=== PATIENT | female | born 1980 | race Caucasian/White ===

== ENCOUNTER 2018-05-18 08:09 | Outpatient (CLI) | payer BC ==
[2018-05-18 08:53] VITALS: BP 125/83; PULSE 83; RESP 20; TEMP 98.3
[2018-05-18] MEDS ORDERED: SODIUM CHLORIDE 0.9% 1,000 ML IV ONE (09:10)
[2018-05-18] MEDS ORDERED: METOCLOPRAMIDE 5 MG/ML 2 ML VIAL IVP STA (09:11)
--- NOTE | 2018-05-19 11:34 | P.MSEPDOC ---
Presenting Problems - Arrival Data Date of Arrival on Unit: 05/18/18 Time of Arrival on Unit: 08:25 Mode of Transport: Ambulatory - Complaint OB-Reason for Admission/Chief Complaint: Acute Nausea/Vomiting, Pain, Diabetes Comment: pt arrived c/o upper abd discomfort since saturday and c/o throwing up since 3 am bile fluid. pt has a history of gestational diabetic Medical History - Information : 7 Para: 2 Term: 1 : 1 Abortions: Spontaneous or Elective: 4 Number of Living Children: 2 - Gestational Age Gestational Age by TRACIE (wks/days): 36 Weeks and 6 Days - History Complications: GDM, Prior Review of Systems - Review of Systems Constitutional: No problems Breast: No problems ENT: No problems Cardiovascular: No problems Respiratory: No problems Gastrointestinal: Pain Genitourinary: No problems Musculoskeletal: No problems Neurological: No problems Skin: No problems Vital Signs - Temperature Temperature: 98.3 F Temperature Source: Oral - Pulse Right Brachial Pulse Rate: 83 Pulse Assessment Method: Automatic Cuff - Respirations Respiratory Rate: 20 Oxygen Delivery Method: Room Air O2 Sat by Pulse Oximetry: 97 - Blood Pressure Right Arm Blood Pressure: 125/83 Blood Pressure Mean: 97 Blood Pressure Source: Automatic Cuff Medical Screen Scoring (Pre) - Cervical Exam Dilation: 0 cm = 0 Membranes: Intact - Uterine Contractions Frequency: > 5 minutes apart = 1 Duration: N/A Intensity: N/A - Maternal Vital Signs Maternal Temperature: N/A Maternal Blood Pressure: N/A Signs of Preeclampsia: Nausea/Vomiting = 1 Maternal Respirations: N/A - Pain Assessment Pain Location and Character: Upper, Abdomen Pain Scale Used: Numeric (1 - 10) Pain Intensity: 8 Pain Management Goal: 2 Pain Description: Sharp Pain Radiation Location: n/a Pain Frequency: Occasional Pain Duration: 45 Pain Duration Units: Minutes Pain Behavior: Anxious, Vocalization Pain Aggravating Factors: Position, Sitting Non-Pharmacological Interventions: Darkened Room, Relaxation Technique - Maternal Trauma Maternal Trauma: N/A - Assessment Baseline FHR: 135 Heart Rate - NICHD Category: Category I (Normal) = 0 NST: Reactive Position: N/A - Total Score Total Score (Pre): 2 - Level of Risk Level of Risk: Low (0-5) Physician Notification (Post) - Physician Notified New Order Received: Yes - Notification Comment Comment: may discharge to home Disposition - Disposition OB Disposition: Discharge to home Discharge Date: 05/18/18 Discharge Time: 10:35 I agree with the RN Medical Screening Exam: Yes Risk & Benefit of care provided described in d/c instruction: No Diagnosis: NAUSEA WITH VOMITING, UNSPECIFIED
== END 2018-05-18 10:35 | disposition home or self-care (01) ==
LOC: FBPOP 08:09
PROVIDERS: ATTEND Obstetrics & Gynecology
DX: O21.2 Late vomiting of pregnancy (principal); Z3A.36 36 weeks gestation of pregnancy
CPT/HCPCS: 59025; 99214; 96360; 96375; J2765

== ENCOUNTER 2018-05-27 09:35 | Inpatient (IN) | payer BC ==
[2018-05-23 09:08] VITALS: BMI 41.3
[2018-05-27] MEDS ORDERED: LACTATED RINGERS 1,000 ML IV ONE (10:00)
[2018-05-27] MEDS ORDERED: CITRIC ACID-SODIUM CITRATE 15 ML CUP PO ONE (10:00)
[2018-05-27] MEDS ORDERED: ceFAZolin IN SWFI 2 GM/20 ML SYRINGE IVP ONE (10:00)
[2018-05-27 11:14] LABS: Glucose,Whole Blood 85 mg/dL (75-99)
[2018-05-27 11:25] LABS: Basophils % (A) 0 %; Eosinophils # (A) 0.1 k/uL (0-0.7); Eosinophils % (A) 1 %; HCT 39.2 % (34.0-46.0); Lymphocytes # (A) 2.1 k/uL (1.0-4.8); Lymphocytes % (A) 15 %; MCH 28.5 pg (25.0-35.0); MCHC 33.1 g/dL (31.0-37.0); MCV 86.2 fL (80.0-100.0); Mean Platelet Volume 8.5; Monocytes # (A) 0.4 k/uL (0-1.0); Monocytes % (A) 3 %; Neutrophils # (A) 10.7 k/uL (1.3-7.7); Neutrophils % (A) 79 %; Platelet Count 243 k/uL (150-450); RBC 4.55 m/uL (3.80-5.40); RDW 14.5 % (11.5-15.5); WBC 13.5 k/uL (3.8-10.6)
[2018-05-27] MEDS ORDERED: ePHEDrine SULFATE/0.9% NACL/PF 50 MG/5 ML SYRINGE IV ONE (12:21)
[2018-05-27] MEDS ORDERED: ONDANSETRON 4 MG/2 ML VIAL ONE (12:21)
[2018-05-27] MEDS ORDERED: NALBUPHINE 10 MG/ML VIAL (10ML MDV) ONE (12:21)
[2018-05-27] MEDS ORDERED: OXYTOCIN 10 UNIT/ML 1 ML VIAL ONE (12:21)
[2018-05-27] MEDS ORDERED: MORPHINE SULFATE (PF) 0.3 MG/0.3 ML SYR ONE (12:21)
[2018-05-27] MEDS ORDERED: KETOROLAC 30 MG/ML 1 ML VIAL ONE (12:21)
[2018-05-27] MEDS ORDERED: METOCLOPRAMIDE 5 MG/ML 2 ML VIAL IVP PRN (13:14)
[2018-05-27] MEDS ORDERED: diphenhydrAMINE 50 MG/ML 1 ML VIAL IVP PRN ×2 (13:14)
[2018-05-27] MEDS ORDERED: diphenhydrAMINE 50 MG CAP PO PRN (13:14)
[2018-05-27] MEDS ORDERED: ZOLPIDEM 5 MG TAB PO PRN (13:14)
[2018-05-27] MEDS ORDERED: ONDANSETRON 4 MG/2 ML VIAL IVP PRN (13:14)
[2018-05-27] MEDS ORDERED: diphenhydrAMINE 25 MG CAP PO PRN (13:14)
[2018-05-27] MEDS ORDERED: NALOXONE 0.4 MG/ML 1 ML VIAL IV PRN (13:14)
[2018-05-27] MEDS ORDERED: SIMETHICONE 80 MG CHEWABLE PO PRN (13:14)
[2018-05-27] MEDS ORDERED: HYDROcodone/APAP 7.5-325MG 1 EACH TAB PO PRN (13:14)
[2018-05-27] MEDS ORDERED: ACETAMINOPHEN TAB 325 MG TAB PO PRN (13:14)
[2018-05-27] MEDS ORDERED: OXYTOCIN 20 UNITS/1000 ML NS 1,000 ML IV SCH (13:15)
--- NOTE | 2018-05-27 13:22 | P.HPOB ---
History of Present Illness H&P Date: 05/27/18 Chief Complaint: 38 weeks, IUGR, gestational diabetes, previous section The patient is a 37-year-old 7 para 1142 admitted at 38-0/7 weeks as established by last menstrual period and confirmed by early ultrasound. She is admitted for repeat low transverse section having undergone 2 previous sections. She carries a history of severe preeclampsia in the past which has not the been noted during this at all. She also was found to be gestational diabetes and has been co-managed for both her diabetes and the diagnosis of intrauterine growth restriction with [facility] in [place]. All testing has been reassuring though most recent ultrasound demonstrated growth at 2nd percentile. Group B strep status is negative. She also fell into the category of advanced maternal age and declined testing. Obstetrical history: 7 para 1142 with 2 previous sections one of which was at approximately 34 weeks for severe preeclampsia. She had 4 other previous losses, some of which in the midtrimester. Current statistics are listed in history of present illness. EDC of 06/09/2018 was established by last menstrual period and confirmed by early ultrasound. Laboratory workup demonstrates a blood type of A+ with a negative antibody screen. Rubella status is immune. Remainder of her laboratory workup was within normal limits. Early Glucola with significantly elevated was followed by an abnormal glucose tolerance test making the diagnosis of diabetes. Group B strep status is negative. Gynecologic history: Unremarkable with no history of any infections to include STDs. Review of Systems Review of systems is confined to history of present illness. Past Medical History Past Medical History: No Reported History Additional Past Medical History / Comment(s): GESTATIONAL DIABETES ON INSULIN AT THIS TIME History of Any Multi-Drug Resistant Organisms: None Reported Past Surgical History: Section Additional Past Surgical History / Comment(s): C-SEC X 2. pt has had one d and c after spontaneous Past Anesthesia/Blood Transfusion Reactions: No Reported Reaction Past Psychological History: No Psychological Hx Reported Smoking Status: Former smoker Past Alcohol Use History: None Reported Additional Past Alcohol Use History / Comment(s): QUIT SMOKING 2016 Past Drug Use History: None Reported - Past Family History Mother Family Medical History: Coronary Artery Disease (CAD), Hypertension Medications and Allergies Home Medications Medication Instructions Recorded Confirmed Type Szv-Dolx-Vyzwp Acid 1 tab PO DAILY 11/10/14 05/27/18 History [-U Capsule (formulary)] Insulin NPH Human Isophane 16 unit SQ HS 05/18/18 05/27/18 History [NovoLIN N] Allergies Allergy/AdvReac Type Severity Reaction Status Date / Time No Known Allergies Allergy Verified 05/27/18 09:59 Exam Vital Signs Temp Pulse Resp BP Pulse Ox 05/27/18 09:59 97.2 F L 90 16 138/82 97 Intake and Output 05/26/18 05/27/18 05/27/18 22:59 06:59 14:59 Output Total 400 Balance -400 Output: Estimated Blood Loss 400 Other: Weight 96.162 kg In general, this is a well-developed, mild to moderately obese white female in no acute distress. Her heart has a regular rhythm and rate without murmur. Her lungs are clear to auscultation bilaterally in all shahid. Her abdomen is gravid, nondistended, has normal active bowel sounds, soft, nontender, and without any palpable masses aside from uterine fundus. Her extremities are without any cyanosis, clubbing, or significant edema and are nontender to palpation bilaterally. Digital cervical examination is deferred. Results Result Diagrams: 05/27/18 11:00 Abnormal Lab Results - Last 24 Hours (Table) 05/27/18 Range/Units 11:00 WBC 13.5 H (3.8-10.6) k/uL Neutrophils # 10.7 H (1.3-7.7) k/uL Assessment and Plan (1) S/P section Current Visit: Yes Status: Acute Code(s): Z98.891 - HISTORY OF UTERINE SCAR FROM PREVIOUS SURGERY SNOMED Code(s): 192597954 (2) Gestational diabetes Current Visit: Yes Status: Acute Code(s): O24.419 - GESTATIONAL DIABETES MELLITUS IN , UNSP CONTROL SNOMED Code(s): 64687642 (3) Intrauterine growth retardation in Current Visit: Yes Status: Acute Code(s): O36.5990 - MATERN CARE FOR OTH OR SUSP POOR FETL GRTH, UNSP TRI, UNSP SNOMED Code(s): 223330515 Plan: The patient is admitted for repeat low transverse section. She has declined intraoperative tubal ligation. Risks and complications the procedure been thoroughly discussed and she has understood and agreed to proceed.
--- NOTE | 2018-05-27 13:27 | P.OP ---
Date of Procedure: 05/27/18 Preoperative Diagnosis: #1. 38-0/7 weeks, previous section times to #2. Gestational diabetes #3. Intrauterine growth restriction Postoperative Diagnosis: Same Procedure(s) Performed: #1. Repeat low transverse section Anesthesia: spinal Surgeon: Ernst Hua Labor Utilization Superintendent #1: Kalli Quinones Estimated Blood Loss (ml): 400 IV fluids (ml): 700 Urine output (ml): 175 Pathology: other (Placenta) Condition: stable Disposition: floor Operative Findings: The patient was taken the operating room where she was delivered of a viable 5 lbs. 11 oz. baby boy with Apgars of 8 at 1 minute and 9 at 5 minutes. 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 The placenta was delivered manually, intact, and grossly normal with a grossly normal three-vessel cord. The tubes and ovaries were otherwise normal. There was a moderate amount of scarring intra-abdominally both from the anterior abdominal wall to the uterus and at the level of the fascia and muscles. Description of Procedure: The patient was prepped and draped in usual fashion after spinal anesthesia was administered by the anesthesiologist. A Pfannenstiel incision was made through pre-existing scar and extended into the abdominal cavity with minimal difficulty at the level of the fascia. There was more difficulty at the level of the peritoneal cavity as there appeared to be adhesions to the anterior abdominal wall from the uterus. These were lysed sharply and bluntly. Ultimately the lower uterine segment was identified. The bladder peritoneum was elevated, incised, and reflected distally. A 2 cm incision was made in the transverse plane of the lower uterine segment to enter the uterus at which time clear fluid was noted. The incision was extended in both directions bluntly. The head was delivered up and through the incision where the nuchal cord was noted and reduced 2. The nose and mouth were thoroughly suctioned. The remainder of the infant was delivered onto the field where the cord was doubly clamped, cut, and the infant passed for resuscitative measures with weight and Apgars as noted above. A segment of cord was doubly clamped, cut, and set aside should cord gases become necessary. The placenta was delivered spontaneously and intact. The uterus was exteriorized and the interior cavity was swept of any remaining placental or membranous fragments. The margins of the incision were grasped with Moran clamps and the incision closed in 2 layers. The first layer was a running locking stitch of 0 chromic catgut followed by a running imbricating layer of 0 chromic catgut. Hemostasis appeared to be excellent. The posterior cul-de-sac was suctioned using a guard and the uterine and ovarian findings are as noted above with the somewhat heart- shaped uterus at the fundus. The uterus was replaced within the abdominal cavity and the gutters swept of any remaining blood, fluid, or clot. The incision was reexamined and noted to be hemostatic. The layer of muscles were reexamined after loosely reapproximating the parietal peritoneum. Any points of bleeding were made hemostatic with the Bovie. Once hemostasis was established, the fascia was closed with 2 running stitches of 0 Vicryl proceeding from the lateral margins to the midpoint. The subcutaneous tissues were irrigated, made hemostatic with the Bovie, and reapproximated with a running stitch of 30 plain catgut. The skin was reapproximated with a running subcuticular stitch of 4-0 Vicryl from margin to margin followed by half-inch Steri-Strips placed with Mastisol. Estimated blood loss for the case is approximately 400 mL. There were no complications. All sponge, instrument, and needle counts were correct. Both mother and infant are resting comfortably in recovery though the infant has been taken temporally to the special care nursery for observation of regarding some minor difficulty with breathing. The patient tolerated the procedure well and proceeded to the recovery room in stable condition.
[2018-05-27] MEDS: LACTATED RINGERS 1,000 ML IV SCH ×2 (18:09→22:33)
[2018-05-27] MEDS: SENNOSIDES-DOCUSATE SODIUM 1 EACH TAB PO SCH (21:03)
[2018-05-27] MEDS: KETOROLAC 30 MG/ML 1 ML VIAL IVP PRN (21:03)
[2018-05-28] MEDS: LACTATED RINGERS 1,000 ML IV SCH (02:03)
[2018-05-28] MEDS: KETOROLAC 30 MG/ML 1 ML VIAL IVP PRN (04:25)
[2018-05-28] MEDS: SENNOSIDES-DOCUSATE SODIUM 1 EACH TAB PO SCH ×2 (08:55→22:35)
--- NOTE | 2018-05-28 08:56 | P.PNOBGPC ---
Subjective - Subjective Patient reports: Reports appetite normal, Reports voiding normally, Reports pain well controlled, Reports ambulating normally : doing well Objective - Vital Signs Latest vital signs: Vital Signs Temp Pulse Resp BP Pulse Ox 05/28/18 08:00 97.6 F 70 18 111/71 05/28/18 04:00 98.2 F 75 16 127/75 97 05/28/18 00:00 98 F 77 16 123/71 98 05/27/18 20:30 98 F 65 16 122/81 96 05/27/18 16:00 97.7 F 63 16 125/72 99 05/27/18 15:06 96 F L 66 16 136/70 05/27/18 14:36 71 16 142/67 99 05/27/18 14:06 73 16 157/79 95 05/27/18 13:51 60 16 140/80 96 05/27/18 13:36 76 16 147/76 95 05/27/18 13:21 83 16 135/79 97 05/27/18 13:06 97.4 F L 78 16 135/79 96 05/27/18 09:59 97.2 F L 90 16 138/82 97 Intake and Output 05/27/18 05/28/18 05/28/18 22:59 06:59 14:59 Intake Total 125 100 Output Total 700 250 Balance -575 -150 Intake: IV 125 Lactated Ringers 1,000 ml 125 @ 125 mls/hr IV .Q8H [facility] Rx#:[id number] Oral 100 Output: Urine 500 250 Straight 250 Uretheral (Lee) 500 Urine/Stool Mix 200 - Exam Extremities: Present: normal Abdomen: Present: normal appearance, soft. Absent: distention, tenderness Incision: Present: normal, dry, intact Uterus: Present: normal, firm (The uterine fundus is timing and nontender below the umbilicus.) - Labs Labs: Abnormal Lab Results - Last 24 Hours (Table) 05/27/18 Range/Units 11:00 WBC 13.5 H (3.8-10.6) k/uL Neutrophils # 10.7 H (1.3-7.7) k/uL Assessment and Plan (1) S/P section Current Visit: Yes Status: Acute Code(s): Z98.891 - HISTORY OF UTERINE SCAR FROM PREVIOUS SURGERY SNOMED Code(s): 538839907 (2) Gestational diabetes Current Visit: Yes Status: Acute Code(s): O24.419 - GESTATIONAL DIABETES MELLITUS IN , UNSP CONTROL SNOMED Code(s): 76276657 (3) Intrauterine growth retardation in Current Visit: Yes Status: Acute Code(s): O36.5990 - MATERN CARE FOR OTH OR SUSP POOR FETL GRTH, UNSP TRI, UNSP SNOMED Code(s): 528671517 Plan: Continue routine postoperative care. Anticipate possible discharge home tomorrow pending no complications.
[2018-05-28 09:18] LABS: Basophils % (A) 0 %; Eosinophils # (A) 0.2 k/uL (0-0.7); Eosinophils % (A) 1 %; HCT 31.7 % (34.0-46.0); HGB 10.7 gm/dL (11.4-16.0); Lymphocytes # (A) 2.1 k/uL (1.0-4.8); Lymphocytes % (A) 18 %; MCHC 33.8 g/dL (31.0-37.0); MCV 85.7 fL (80.0-100.0); Mean Platelet Volume 8.7; Monocytes # (A) 0.3 k/uL (0-1.0); Monocytes % (A) 3 %; Neutrophils # (A) 8.8 k/uL (1.3-7.7); Neutrophils % (A) 76 %; Platelet Count 230 k/uL (150-450); RDW 14.8 % (11.5-15.5); WBC 11.5 k/uL (3.8-10.6)
[2018-05-28] MEDS: IBUPROFEN 600 MG TAB PO PRN ×2 (10:28→17:47)
[2018-05-28] MEDS: HYDROcodone/APAP 5-325MG 1 EACH TAB PO PRN ×2 (13:28→19:01)
[2018-05-28 18:00] VITALS: TEMP 98.3
[2018-05-29 00:23] VITALS: PULSE 88
[2018-05-29] MEDS: IBUPROFEN 600 MG TAB PO PRN (00:33)
[2018-05-29] MEDS: HYDROcodone/APAP 5-325MG 1 EACH TAB PO PRN ×2 (02:31→09:30)
--- NOTE | 2018-05-29 07:25 | P.PN ---
Progress Note - Text 05/28 2010 37-year-old female status post . Patient has a VAS of 0 with complaints of nausea vomiting and pruritus. She is feeling a lot better this evening.
[2018-05-29] MEDS: SENNOSIDES-DOCUSATE SODIUM 1 EACH TAB PO SCH (08:00)
--- NOTE | 2018-05-29 08:45 | P.DS ---
Providers Date of admission: 05/27/18 09:35 Expected date of discharge: 05/29/18 Attending physician: Ernst Hua Primary care physician: Stated None - Discharge Diagnosis(es) (1) S/P section Current Visit: Yes Status: Acute (2) Gestational diabetes Current Visit: Yes Status: Acute (3) Intrauterine growth retardation in Current Visit: Yes Status: Acute Hospital Course: The patient is a 37-year-old 7 para 114 to admitted at 38-0/7 weeks by good dating parameters. She is admitted for repeat low transverse section having had 2 previous sections and requesting repeat. Her was complicated by gestational diabetes which was co-managed with maternal medicine. She additionally was found during the have the baby growing at the level of intrauterine growth restriction. All testing was reassuring. She was brought to the operating room where she was delivered of a viable 5 lbs. 11 oz. baby boy with Apgars of 8 at 1 minute and 9 at 5 minutes. Her postoperative course was entirely unremarkable with vital signs being stable and her temperature was afebrile throughout. She was deemed stable for discharge on postoperative day #2 was discharged home to follow-up in the office in 2 weeks for an incision check and 6 weeks routinely. Discharge instructions included calling for any significantly increased bleeding or foul-smelling lochia, significantly increased fever or abdominal pain, perineal complaints, breast complaints, incisional complaints, or anything else that concerned her. She is additionally instructed to have nothing in the vagina for at least 6 weeks time and to abstain from any heavy lifting over the same period. She last was instructed to do no driving until off of all pain medications or 2 weeks' time, whichever came first. She understood her instructions and agrees to follow up as noted above. Discharge medications included a prescription for Tylenol 3, 1-2 by mouth every 6 hours when necessary pain, #20 dispensed with no refills. She was otherwise to use [id number] analgesic pain medications as needed. Maternal blood type is A + and rubella status is immune. Discharge hemoglobin and hematocrit were 10.7 and 31.7 respectively. Procedures: #1. Repeat low transverse section Plan - Discharge Summary Discharge Rx Participant: Yes New Discharge Prescriptions: No Action Eyo-Ybxk-Yntrb Acid [-U Capsule (formulary)] 1 tab PO DAILY Insulin NPH Human Isophane [NovoLIN N] 16 unit SQ HS Discharge Medication List Xzu-Zyew-Dicye Acid [-U Capsule (formulary)] 1 tab PO DAILY [History] Insulin NPH Human Isophane [NovoLIN N] 16 unit SQ HS 05/18/18 [History]
[2018-05-29 09:49] VITALS: BP 133/71; RESP 18
== END 2018-05-29 12:23 | disposition home or self-care (01) | DRG 765 ==
LOC: 4FBP 09:35
PROVIDERS: ADMIT Obstetrics & Gynecology; ATTEND Obstetrics & Gynecology
PROC: 10D00Z1 Extraction of Products of Conception, Low, Open Approach (ICD-10-PCS; principal; 2018-05-27 12:33)
DX: O34.211 Maternal care for low transverse scar from previous cesarean delivery (principal); O36.5930 Maternal care for other known or suspected poor fetal growth, third trimester, not applicable or unspecified; Z37.0 Single live birth; O24.424 Gestational diabetes mellitus in childbirth, insulin controlled; Z3A.38 38 weeks gestation of pregnancy; Z82.49 Family history of ischemic heart disease and other diseases of the circulatory system; Z87.891 Personal history of nicotine dependence; L29.9 Pruritus, unspecified; O69.81X0 Labor and delivery complicated by cord around neck, without compression, not applicable or unspecified; Z79.4 Long term (current) use of insulin
CPT/HCPCS: 85025; 86850; 86900; 86901; 88307

== ENCOUNTER → 2018-07-14 | Outpatient (CLI) | payer BC ==
[2018-07-14 10:12] LABS: Basophils # (A) 0.1 k/uL (0-0.2); Basophils % (A) 1 %; Eosinophils # (A) 0.3 k/uL (0-0.7); Eosinophils % (A) 3 %; HCT 43.2 % (34.0-46.0); Lymphocytes % (A) 24 %; MCH 26.6 pg (25.0-35.0); MCV 83.3 fL (80.0-100.0); Monocytes # (A) 0.4 k/uL (0-1.0); Monocytes % (A) 3 %; Neutrophils # (A) 8.8 k/uL (1.3-7.7); Neutrophils % (A) 69 %; Platelet Count 389 k/uL (150-450); RBC 5.18 m/uL (3.80-5.40); WBC 12.7 k/uL (3.8-10.6)
[2018-07-14 10:20] LABS: HGB 13.8 gm/dL (11.4-16.0)
== END | disposition home or self-care (01) ==
LOC: LABPAT 08:41
PROVIDERS: ATTEND Obstetrics & Gynecology
DX: Z01.812 Encounter for preprocedural laboratory examination (principal)
CPT/HCPCS: 36415; 85025

== ENCOUNTER 2018-07-21 07:58 | Day surgery (SDC) | payer BC ==
[2018-07-11 13:15] VITALS: BMI 37.7
[~2018-07-21 07:58] MED LIST: DEXAMETHASONE SOD PHOSPHATE 10 MG/ML 1 ML VIAL IV ONE; HYDROmorphone 0.5 MG/0.5 ML SYRINGE IVP PRN; LACTATED RINGERS 1,000 ML IV SCH; MIDAZOLAM 2 MG/2 ML VIAL IV PRN; ONDANSETRON 4 MG/2 ML VIAL IVP ONE; Pre Op ABX Message 1 EACH MISC MISCELLANE ONE; SCOPOLAMINE 1.5MG/72HR PATCH TRANSDERM ONE
[2018-07-21] MEDS ORDERED: LIDOCAINE 1% 20 ML VIAL (10MG/ML) FOR IV START INTRADERMA ONE (08:35)
[2018-07-21] MEDS ORDERED: KETOROLAC 30 MG/ML 1 ML VIAL IVP PRN (09:57)
[2018-07-21] MEDS ORDERED: Acetaminophen-Codeine 300-30mg TAB PO PRN ×2 (09:57)
[2018-07-21] MEDS ORDERED: ONDANSETRON 4 MG/2 ML VIAL IVP PRN (09:57)
[2018-07-21] MEDS ORDERED: SIMETHICONE 80 MG CHEWABLE PO PRN (09:57)
[2018-07-21] MEDS ORDERED: METOCLOPRAMIDE 5 MG/ML 2 ML VIAL IVP PRN (09:57)
[2018-07-21] MEDS ORDERED: IBUPROFEN 600 MG TAB PO PRN (09:57)
[2018-07-21] MEDS ORDERED: diphenhydrAMINE 50 MG/ML 1 ML VIAL IVP PRN (09:57)
[2018-07-21] MEDS ORDERED: LACTATED RINGERS 1,000 ML IV SCH (10:00)
[2018-07-21] MEDS ORDERED: ROCURONIUM BROMIDE 10 MG/ML 10 ML VIAL IV ONE (10:02)
[2018-07-21] MEDS ORDERED: LIDOCAINE 1% INJ 10MG/ML (20 ML MDV) ONE (10:02)
[2018-07-21] MEDS ORDERED: KETOROLAC 30 MG/ML 1 ML VIAL ONE (10:02)
[2018-07-21] MEDS ORDERED: MIDAZOLAM 2 MG/2 ML VIAL ONE (10:02)
[2018-07-21] MEDS ORDERED: PROPOFOL 10 MG/ML 20 ML VIAL IV ONE (10:02)
[2018-07-21] MEDS ORDERED: fentaNYL (PF) 50 MCG/ML 2 ML AMP ONE (10:02)
[2018-07-21] MEDS ORDERED: NEOSTIGMINE 1 MG/ML 10 ML VIAL ONE (10:02)
[2018-07-21] MEDS ORDERED: GLYCOPYRROLATE 0.2 MG/ML 2 ML VIAL ONE (10:02)
[2018-07-21] MEDS ORDERED: ROPIVACAINE 5 MG/ML 30 ML VIAL MISCELLANE ONE ×2 (10:22→10:42)
--- NOTE | 2018-07-21 10:50 | P.OP ---
Date of Procedure: 07/21/18 Preoperative Diagnosis: #1. 6 weeks status post delivery, multiparity #2. Undesired fertility Postoperative Diagnosis: Same plus #3. Pelvic adhesive disease Procedure(s) Performed: #1. Laparoscopic bilateral tubal occlusion with Filshie clips Anesthesia: JEANIE Surgeon: Ernst Hua Estimated Blood Loss (ml): 5 IV fluids (ml): 300 Urine output (ml): 75 Pathology: none sent Condition: stable Disposition: PACU Operative Findings: Preoperative pelvic examination demonstrated a 5 week slightly anteverted normal shaped uterus with somewhat decreased mobility. Adnexa were normal bilaterally. Intraoperatively, there was noted to be some omental adhesions below and to the left of the umbilicus in 2 separate spaces, the higher which was larger and more dense. Uterus itself was densely adherent to the anterior abdominal wall likely at the site of the previous incision. These incisions were left in place as the patient is asymptomatic. A Filshie clip was placed across the entire thickness of the isthmic portion of each fallopian tube though the left fallopian tube was somewhat lower than the right secondary to difficulty with the adhesions and capturing the fallopian tube. The small bowel, large bowel, liver, diaphragm and what appeared to be the tip of the appendix appeared entirely normal. The patient would be a candidate for da Viridiana hysterectomy only given the degree of adhesions. The cul-de-sac was free. Description of Procedure: The patient was prepped and draped in usual fashion after general endotracheal anesthesia was administered by the anesthesiologist. A speculum was placed in the anterior lip of the cervix was grasped with a single-tooth tenaculum allowing placement of an acorn cannula. The bladder was draining approximately 75 mL of clear ana luisa urine. Attention was then turned to the abdomen where a roughly 5 mm incision was made in a transverse for the umbilicus allowing insertion of a 5 mm optical trocar under direct visualization without difficulty. A pneumoperitoneum was established. The adhesions were noted as above with an adhesion approximately 4-5 cm above the uterus between the omentum and anterior abdominal wall. There was a smaller adhesion in the left lower abdomen just above the adnexa. Neither were easily lysed during the surgery and therefore left in place as the patient is asymptomatic. A site was selected just left of midline in a pre-existing scar where a roughly 8 mm incision was made in the transverse plane allowing insertion of an 8 mm optical trocar under direct visualization without difficulty. The probe was utilized to sweep the bowel from the pelvis and confirmed the findings as noted above. The probe was replaced with a Filshie clip applicator which was utilized to place a Filshie clip across the entire thickness of the isthmic portion approximately 2-3 cm from the cornu on the patient's right side. Attempts to place it similarly on the left side were unsuccessful given the immobility of the uterus. I was able to place it at the lowest portion of the isthmic section of fallopian tube approximately 4 cm from the cornu of the uterus where it was firmly affixed as well. The upper abdomen was explored with normal findings as noted above. The pneumoperitoneum was evacuated through the ports and the ports removed. The incisions were closed with interrupted subcuticular stitches of 4-0 Vicryl followed by Steri-Strips and Band-Aids. Prior to placement of the Steri-Strips and Band-Aids, the incisions were infused with a total of 10 mL of half percent Marcaine without epinephrine equally divided between the 2 sites. All sponge, instrument, and needle counts were correct. Estimated blood loss for the case was less than 5 mL. There were no complications. The patient tolerated the procedure well and proceeded to the recovery room in stable condition.
[2018-07-21] MEDS ORDERED: HYDROmorphone 1 MG/ML 1 ML SYRINGE IVP ONE (11:08)
[2018-07-21 11:10] VITALS: TEMP 97.3
[2018-07-21] MEDS ORDERED: MEPERIDINE 50 MG/ML SYRINGE IVP ONE (11:24)
[2018-07-21] MEDS ORDERED: LACTATED RINGERS 1,000 ML IV ONE (11:38)
[2018-07-21 12:11] VITALS: RESP 18
[2018-07-21 13:26] VITALS: BP 110/74; PULSE 60
== END 2018-07-21 13:27 | disposition home or self-care (01) ==
LOC: OR 07:58
PROVIDERS: ATTEND Obstetrics & Gynecology
DX: Z30.2 Encounter for sterilization (principal); N73.6 Female pelvic peritoneal adhesions (postinfective); Z79.82 Long term (current) use of aspirin; Z79.4 Long term (current) use of insulin; Z79.899 Other long term (current) drug therapy; Z87.891 Personal history of nicotine dependence
CPT/HCPCS: 81025; 58671; J2250; J1100; J2710; J2175; J2405; J2001; J3010; J1885; J1170 ×2; J2795; J2704